=== PATIENT | male | born 1960 | race Caucasian/White ===

== ENCOUNTER 2023-01-27 14:29 | Observation (INO) | payer OTHER ==
[2023-01-27] MEDS ORDERED: metroNIDAZOLE/Normal Saline 500 MG in Premix Bag 1 BAG IV ONE (15:09)
[2023-01-27] MEDS ORDERED: Lidocaine 1% 2 ML ONE (16:05)
[2023-01-27] MEDS ORDERED: Propofol 200 MG/20 ML SDV ONE (16:05)
[2023-01-27] MEDS ORDERED: Rocuronium 50 MG/5 ML Vial ONE ×2 (16:05→16:10)
[2023-01-27] MEDS ORDERED: fentaNYL 100 MCG/2 ML SDV ONE (16:06)
[2023-01-27] MEDS: Lidocaine 1% with EPINEPHrine 1:100,000 20 ML MDV ONE ×2 (16:26→16:41)
[2023-01-27] MEDS: Bupivacaine 0.5%/EPINEPHrine 1:200,000 50 ML MDV ONE ×2 (16:26→16:40)
[2023-01-27] MEDS ORDERED: Sugammadex Sodium 200 MG/2 ML VIAL ONE (16:34)
[2023-01-27] MEDS ORDERED: Ondansetron 4 MG/2 ML SDV ONE (16:35)
[2023-01-27] MEDS ORDERED: Ketorolac 30 MG/ML SDV ONE (16:35)
[2023-01-27] MEDS ORDERED: HYDROmorphone 0.5 MG/0.5 ML Syringe ONE (16:46)
[2023-01-27] MEDS ORDERED: HYDROmorphone 0.5 MG/0.5 ML Syringe IVPUSH PRN (17:20)
[2023-01-27] MEDS ORDERED: Morphine 2 MG/ML SYRINGE IVPUSH PRN (17:20)
[2023-01-27] MEDS ORDERED: Ondansetron 4 MG/2 ML SDV IVPUSH PRN (17:20)
[2023-01-27] MEDS ORDERED: Acetaminophen 325 MG Tab PO PRN (17:20)
[2023-01-27] MEDS ORDERED: fentaNYL 100 MCG/2 ML SDV IVPUSH PRN (17:20)
[2023-01-27] MEDS ORDERED: Sodium Chloride 0.9% 1,000 ML IV SCH (17:30)
[2023-01-27] MEDS ORDERED: Piperacillin/Tazobactam 4.5 GM in Sodium Chloride 0.9% 100 ML IV ONE (18:00)
[2023-01-28] MEDS: Piperacillin/Tazobactam 4.5 GM in Sodium Chloride 0.9% 100 ML IV SCH ×2 (00:19→08:53)
[2023-01-28] MEDS: Acetaminophen/oxyCODONE 325-5 MG Tab PO PRN ×2 (06:45→12:20)
[2023-01-28] MEDS: Enoxaparin 40 MG/0.4 ML Syringe SUBCUT ONE ×2 (06:45→06:47)
[2023-01-28] MEDS ORDERED: Enoxaparin 40 MG/0.4 ML Syringe SUBCUT ONE (07:30)
[2023-01-29] MEDS ORDERED: Piperacillin/Tazobactam 4.5 GM in Sodium Chloride 0.9% 100 ML IV SCH ×2
== END 2023-01-28 12:22 | disposition home or self-care (01) ==
LOC: JD.ED 14:29 → JD.SDS 15:50 → JD.MS 17:21
PROVIDERS: ADMIT Surgery; ATTEND Surgery
DX: C18.1 Malignant neoplasm of appendix (principal); K35.80 Unspecified acute appendicitis; Z87.891 Personal history of nicotine dependence; Z79.84 Long term (current) use of oral hypoglycemic drugs; Z79.899 Other long term (current) drug therapy
CPT/HCPCS: 44970; 94761; 96365; 99284; A9270; J1170; J1650; J1885; J2543; J2704; J3010; J3490; J7030; 00840; 99140; 99285; J2405

== ENCOUNTER 2023-02-21 06:45 | Inpatient (IN) | payer SELFPAY ==
[~2023-02-21 06:45] MED LIST: Lactated Ringers 1,000 ML IV SCH; Lidocaine 1%/Sod Bicarbonate in NS 8.4% 1 ML Syringe IDERM PRN; Sodium Chloride 0.9% 10 ML Syringe FLUSH PRN
[2023-02-21] MEDS ORDERED: ceFAZolin 2 GM Vial ONE (06:54)
[2023-02-21] MEDS ORDERED: Rocuronium 50 MG/5 ML Vial ONE ×2 (06:54→08:30)
[2023-02-21] MEDS ORDERED: Midazolam 1 MG/ML 2 ML SDV ONE (06:54)
[2023-02-21] MEDS ORDERED: fentaNYL 100 MCG/2 ML SDV ONE (06:54)
[2023-02-21] MEDS ORDERED: Lidocaine 1% 2 ML ONE (06:54)
[2023-02-21] MEDS ORDERED: Propofol 200 MG/20 ML SDV ONE (06:54)
[2023-02-21] MEDS ORDERED: metroNIDAZOLE/Normal Saline 500 MG in Premix Bag 1 BAG IV ONE (07:00)
[2023-02-21] MEDS ORDERED: Ondansetron 4 MG/2 ML SDV IVPUSH PRN (07:13)
[2023-02-21] MEDS ORDERED: fentaNYL 100 MCG/2 ML SDV IVPUSH PRN (07:13)
[2023-02-21] MEDS ORDERED: Bupivacaine 0.5%/EPINEPHrine 1:200,000 50 ML MDV ONE (07:20)
[2023-02-21] MEDS ORDERED: Lidocaine 1% with EPINEPHrine 1:100,000 20 ML MDV ONE ×2 (07:33→09:00)
[2023-02-21] MEDS ORDERED: Ropivacaine 0.5% 5 MG/ML 30 ML SDV ONE (07:46)
[2023-02-21] MEDS ORDERED: HYDROmorphone 0.5 MG/0.5 ML Syringe ONE (09:18)
[2023-02-21] MEDS ORDERED: Ketorolac 30 MG/ML SDV ONE (09:36)
[2023-02-21] MEDS ORDERED: Ondansetron 4 MG/2 ML SDV ONE (09:37)
[2023-02-21] MEDS ORDERED: Sugammadex Sodium 200 MG/2 ML VIAL ONE (09:48)
[2023-02-21] MEDS: Lactated Ringers 1,000 ML IV SCH (11:25)
[2023-02-21] MEDS: HYDROmorphone 0.5 MG/0.5 ML Syringe IVPUSH PRN ×2 (11:34→13:06)
[2023-02-21] MEDS: Acetaminophen 325 MG Tab PO SCH ×3 (11:37→23:48)
[2023-02-21] MEDS: Sodium Chloride 0.9% 10 ML Syringe FLUSH SCH ×3 (11:38→20:52)
[2023-02-21] MEDS ORDERED: chlordiazePOXIDE 10 MG Cap PO PRN (11:50)
[2023-02-21] MEDS: FENTANYL EPIDUR SCH ×4 (14:07→23:41)
[2023-02-21] MEDS: ROPIVACAINE EPIDUR SCH ×4 (14:07→23:41)
[2023-02-21] MEDS: ceFAZolin 2 GM in Sodium Chloride 0.9% 50 ML IV SCH ×2 (14:12→23:23)
[2023-02-21] MEDS: metroNIDAZOLE/Normal Saline 500 MG in Premix Bag 1 BAG IV SCH ×2 (14:53→23:48)
[2023-02-21] MEDS: Enoxaparin 40 MG/0.4 ML Syringe SUBCUT SCH (20:45)
[2023-02-22 05:25] LABS: CALCIUM 8.5 mg/dL (8.5-10.1); CREATININE 0.6 mg/dL (0.7-1.3); EST CRCL DRUG DOSING (CG) 135.52 mL/min
[2023-02-22] MEDS: Acetaminophen 325 MG Tab PO SCH ×4 (06:37→22:47)
[2023-02-22] MEDS: Lactated Ringers 1,000 ML IV SCH ×2 (07:52→07:54)
[2023-02-22] MEDS: Lisinopril 20 MG Tab PO SCH (10:47)
[2023-02-22] MEDS: FENTANYL EPIDUR SCH ×2 (10:55)
[2023-02-22] MEDS: ROPIVACAINE EPIDUR SCH ×2 (10:55)
[2023-02-22] MEDS ORDERED: metFORMIN 500 MG Tab PO ONE (17:00)
[2023-02-22] MEDS: Enoxaparin 40 MG/0.4 ML Syringe SUBCUT SCH (20:17)
[2023-02-23] MEDS: FENTANYL EPIDUR SCH ×2 (00:57)
[2023-02-23] MEDS: ROPIVACAINE EPIDUR SCH ×2 (00:57)
[2023-02-23] MEDS: Lactated Ringers 1,000 ML IV SCH ×2 (02:50→22:38)
[2023-02-23] MEDS: Acetaminophen 325 MG Tab PO SCH ×4 (05:14→22:59)
[2023-02-23] MEDS: metFORMIN 500 MG Tab PO SCH ×2 (08:27→17:11)
[2023-02-23] MEDS: Lisinopril 20 MG Tab PO SCH (08:27)
[2023-02-23] MEDS: Docusate Sodium 100 MG Cap PO SCH ×2 (09:22→20:25)
[2023-02-23] MEDS ORDERED: FENTANYL IV SCH (15:00)
[2023-02-23] MEDS ORDERED: ROPIVACAINE IV SCH (15:00)
[2023-02-23] MEDS ORDERED: SODIUM CHLORIDE IV SCH (15:00)
[2023-02-23] MEDS: Enoxaparin 40 MG/0.4 ML Syringe SUBCUT SCH (20:19)
[2023-02-24] MEDS: Acetaminophen 325 MG Tab PO SCH (04:22)
[2023-02-24 05:53] LABS: ANION GAP 12.8 (5-15); CALCIUM 9.4 mg/dL (8.5-10.1); CREATININE 0.6 mg/dL (0.7-1.3); EST CRCL DRUG DOSING (CG) 132.47 mL/min; POTASSIUM,K 3.8 mEq/L (3.5-5.1)
[2023-02-24] MEDS: metFORMIN 500 MG Tab PO SCH (07:29)
[2023-02-24] MEDS: Lisinopril 20 MG Tab PO SCH (08:33)
[2023-02-24] MEDS ORDERED: Acetaminophen 325 MG Tab PO PRN (09:58)
[2023-02-24] MEDS ORDERED: Sodium Chloride 0.9% 1,000 ML IV SCH (10:00)
[2023-02-24] MEDS ORDERED: Ondansetron 4 MG/2 ML SDV IVPUSH PRN (11:42)
[2023-02-24] MEDS ORDERED: traMADol 50 MG Tab PO ONE (14:05)
[2023-02-24] MEDS ORDERED: traMADol 50 MG Tab PO PRN (14:07)
[2023-02-24] MEDS: Docusate Sodium 100 MG Cap PO SCH (14:19)
[2023-02-24] MEDS ORDERED: Gabapentin 100 MG Cap PO SCH (15:00)
== END 2023-02-24 14:24 | disposition home or self-care (01) | DRG 330 ==
LOC: JD.ICU 06:45
PROVIDERS: ADMIT Surgery; ATTEND Surgery
PROC: 0DTF4ZZ Resection of Right Large Intestine, Percutaneous Endoscopic Approach (ICD-10-PCS; principal; 2023-02-21)
DX: C18.1 Malignant neoplasm of appendix (principal); E87.1 Hypo-osmolality and hyponatremia; K56.7 Ileus, unspecified; K59.00 Constipation, unspecified; I10 Essential (primary) hypertension; E87.8 Other disorders of electrolyte and fluid balance, not elsewhere classified; F17.210 Nicotine dependence, cigarettes, uncomplicated; E11.9 Type 2 diabetes mellitus without complications; Z79.84 Long term (current) use of oral hypoglycemic drugs; Z90.49 Acquired absence of other specified parts of digestive tract; Z79.899 Other long term (current) drug therapy
CPT/HCPCS: 00840; 36415; 80048; 82947; 93005; A9270-GY; J0690; J1170; J1650; J1885; J2250; J2405; J2704; J2795; J3010; J3490; J7030; J7120